=== PATIENT | female | born 1945 | race Caucasian/White ===

== ENCOUNTER 2023-08-05 08:50 | Day surgery (SDC) | payer MEDICARE, BC ==
[2023-08-05] VITALS (9 sets, daily range): BP systolic 135–158; BP diastolic 68–89; PULSE 64–78; RESP 14–16; TEMP 97.5; O2SAT 78–98
[2023-08-05] MEDS ORDERED: BUDE10.26 INH (09:23)
[2023-08-05] MEDS ORDERED: ALBU10.7 INH (09:23)
[2023-08-05] MEDS ORDERED: ATOR20TA66 PO (09:23)
[2023-08-05] MEDS ORDERED: LISI2.5T14 PO (09:23)
[2023-08-05] MEDS ORDERED: OXYB-58 PO (09:25)
[2023-08-05] MEDS ORDERED: MECL-302 PO (09:25)
[2023-08-05] MEDS ORDERED: DILT-88 PO (09:25)
[2023-08-05] MEDS ORDERED: OMEP40CA21 PO (09:25)
[2023-08-05] MEDS ORDERED: DULO60CA65 PO (09:25)
[2023-08-05] MEDS ORDERED: LEVO75TA7 PO (09:25)
[2023-08-05 11:28] LABS: GLUCOSE,CSF 64 MG/DL (40-75); TOTAL PROTEIN,CSF 53 MG/DL (30-60)
[2023-08-05 11:46] LABS: APPEARANCE,CSF CLEAR; CSF SUPERNATANT COLOR COLORLESS; CSF VOLUME 10.2 ML
[2023-08-05 11:47] LABS: CSF RBC 28 /CU MM (0); CSF WBC CT 1 /CU MM (0-5); TUBE# COUNTED 4
[2023-08-09 12:34] LABS: VDRL, CSF Non Reactive (Non Rea:<1:1)
[2023-08-09 20:59] LABS: ANGIOTENSIN CONVERT ENZ, CSF <1.5 U/L (0.0-3.1)
== END 2023-08-05 12:20 | disposition home or self-care (01) ==
LOC: SSTAY O 08:50
PROVIDERS: ATTEND Psychiatry & Neurology Neurology
DX: F03.90 Unspecified dementia, unspecified severity, without behavioral disturbance, psychotic disturbance, mood disturbance, and anxiety (principal); I10 Essential (primary) hypertension; E03.9 Hypothyroidism, unspecified; F41.9 Anxiety disorder, unspecified; J45.909 Unspecified asthma, uncomplicated; G47.33 Obstructive sleep apnea (adult) (pediatric); Z79.890 Hormone replacement therapy; Z79.899 Other long term (current) drug therapy; Z90.710 Acquired absence of both cervix and uterus; Z90.89 Acquired absence of other organs; Z98.890 Other specified postprocedural states; Z82.49 Family history of ischemic heart disease and other diseases of the circulatory system
CPT/HCPCS: 36415; 62328; 82164; 82945; 84157; 86592; 86617; 89051